=== PATIENT | female | born 1955 | race African-American/Black ===

== ENCOUNTER 2017-08-02 09:24 | Emergency (ER) | payer MEDICAID ==
[~2017-08-02] VITALS: Ht 165.1 cm; Wt 80.0 kg
[2017-08-02] MEDS ORDERED: FENTANYL CITRATE/PF 50MCG/ML 2ML VIAL IV ONE (11:00)
[2017-08-02] MEDS ORDERED: SODIUM CHLORIDE 0.9% 1,000 ML IV ONE (11:00)
[2017-08-02] MEDS ORDERED: SILVER SULFADIAZINE 1% CREAM 50GM TOP STA (11:00)
[2017-08-02 13:45] VITALS: BP 130/89
== END 2017-08-02 14:50 | disposition home or self-care (01) ==
LOC: ER 09:47
DX: T24.212A Burn of second degree of left thigh, initial encounter (principal); T23.102A Burn of first degree of left hand, unspecified site, initial encounter; J44.9 Chronic obstructive pulmonary disease, unspecified; F17.200 Nicotine dependence, unspecified, uncomplicated; X12.XXXA Contact with other hot fluids, initial encounter; Y93.89 Activity, other specified; Y92.89 Other specified places as the place of occurrence of the external cause; Y99.8 Other external cause status
CPT/HCPCS: 16020; 96374; 99285; J3010; J7030; Z7610